=== PATIENT | male | born 1950 | race Caucasian/White ===

== ENCOUNTER 2023-03-08 10:28 | Emergency (ER) | payer MEDICARE, SELFPAY ==
[2023-03-08 10:37] VITALS: BP 210/121; PULSE 74; RESP 16; TEMP 36.4; O2SAT 98
--- NOTE | 2023-03-08 10:49 | ED_ITS ---
Documented by User: GEOVANNI Barrera 03/08/23 13:14 HPI - General Adult General: Chief complaint: General Medical Stated complaint: B/P @ eye 232/100 Time Seen by Provider: 03/08/23 10:43 Source: patient and family () Mode of arrival: ambulatory Limitations: no limitations History of Present Illness: Patient is a 72-year-old male who presents to ED today along with his for evaluation of high blood pressure. Patient states he was at a routine eye appointment when they checked his blood pressure and found it was significantly elevated at roughly 210/120s. Patient states he is asymptomatic currently. He states he has a longstanding history of blood pressure and takes several medications for this. He states over the past month or so blood pressure has been fairly labile. He states he will often have readings of systolics in the 190s but after rechecking it a few hours later will be in the 110s. He tells me takes diltiazem and lisinopril for his blood pressure and used to take both of these in the morning however his primary care provider (yesterday) told him to start taking the diltiazem in the evening and the lisinopril in the morning. Pharmacy record also shows that he takes hydralazine and HCTZ. These were confirmed by patient and his . Patient denies headache, chest pain, shortness of breath, difficulty breathing. Denies visual changes. PCP has referred him to cardiology and has scheduled him for stress testing. His appointments are already scheduled per . Onset (ago): week(s) (chronically high bp readings) Relieving factors: none Exacerbating factors: none Associated symptoms: Reports no associated symptoms; Deny chest pain, confusion, dyspnea, headache(s), malaise, nausea, rash, palpitations, syncope or vomiting Treatments prior to arrival: none Review of Systems Const: Denies: fever(s), chills, body aches, fatigue or malaise Eyes: Denies: change in vision, blurry vision, photophobia, floaters or seeing flashes Card: Denies: chest pain, palpitations, irregular heart rhythm, lightheadedness, syncope or dyspnea on exertion Resp: Denies: dyspnea, productive cough or pain on inspiration GI: Denies: abdominal pain, nausea, vomiting, heartburn or diarrhea : Denies: difficulty urinating or dysuria Musc: Denies: neck pain, back pain, extremity pain or joint pain Skin/Breast: Denies: rash Neuro: Denies: headache(s), numbness in extremities, weakness in extremities, sensory changes, lack of coordination, difficulty walking, frequent falls, dizzi ness, vertigo, confusion, behavioral changes, Slurred speech present, difficulty communicating thoughts or seizure-like activity Physical Exam Const: COMMON NORMALS: no acute distress, average body habitus, patient oriented x3, no limitations, healthy appearing, alert and well nourished ORIENTATION/CONSCIOUSNESS: Yes awake, Yes oriented to person, Yes oriented to place and Yes oriented to time OTHER: face appears flushed HENMT: COMMON NORMALS: normocephalic and atraumatic HEAD & SCALP: normal to inspection, normocephalic and atraumatic Neck/C-Spine: COMMON NORMALS: no JVD Resp: COMMON NORMALS: normal respiratory effort and clear to auscultation bilaterally AUSCULTATION: clear to auscultation bilaterally Cardio: COMMON NORMALS: no JVD, regular rate and regular rhythm RATE: regular rate RHYTHM: regular rhythm GI: COMMON NORMALS: Normal to inspection, nondistended, normoactive bowel sounds present, Soft to palpation, non-tender, No hepatosplenomegaly present and no masses PALPATION: Yes Soft to palpation and Yes No hepatosplenomegaly present Extremity: COMMON NORMALS: normal to inspection, capillary refill normal, no clubbing, cyanosis or edema, no calf tenderness and no pedal edema GENERAL: Yes normal exam except as noted Neuro: LUC COMA SCALE: document GCS findings Luc coma scale eye opening: Spontaneous [place] coma scale verbal response: Orientated Luc coma scale motor response: Obey commands [place] coma scale total score: 15 COMMON NORMALS: patient oriented x3, CN's II-XII intact bilaterally, moves all extremities, no focal motor deficits and no sensory deficits noted SENSORIUM/ORIENTATION: Yes alert, Yes oriented to person, Yes oriented to place and Yes oriented to time Skin: COMMON NORMALS: no rashes or lesions noted GENERAL SKIN EXAM: no rashes or lesions noted Course Vital Signs: Vital signs: Vital Signs Temperature 97.6 F 03/08/23 10:37 Pulse Rate 73 03/08/23 12:57 Respiratory Rate 16 03/08/23 11:11 Blood Pressure 166/88 05/23/23 12:57 Pulse Oximetry 97 03/08/23 12:57 Oxygen Delivery Me thod Room Air 03/08/23 10:37 MDM - General Adult Medical Decision Making Patient has a chronic history of hypertension. He states over the past month or so systolics have been reading as high as 190s. He does have an upcoming appoint ment with cardiology as well as an appointment for a stress test. He is asymptomatic upon arrival to our ED. Blood work overall looks okay apart from some minor elevations to his BUN/CR 25/1.4. He is on several nephrotoxic medications. We will discontinue his glipizide and decrease his metformin and start him on Januvia. We will discontinue his HCTZ and start him on amlodipine. Recommend close observation of blood pressures and blood sugars over the next week or so. Recommend he follow-up with primary care. Return ED precautions given. Case discussed with Dr. Sibley who agrees with care plan for patient. Lab Data 03/08/23 10:50 03/08/23 10:50 Laboratory Results WBC 8.4 10^3/uL (4.0-10.0) 03/08/23 10:50 RBC 4.14 10^6/uL (4.1-5.3) 03/08/23 10:50 Hgb 12.6 g/dL (11.7-16.6) 03/08/23 10:50 Hct 39.6 % (42.0-52.0) L 03/08/23 10:50 MCV 95.7 fl (80-94) H 03/08/23 10:50 MCH 30.4 pg (28.0-34.0) 03/08/23 10:50 MCHC 31.8 g/dL (30.0-36.0) 03/08/23 10:50 RDW 14.3 % (12.1-15.1) 03/08/23 10:50 Plt Count 283 10^3/cmm (130-400) 03/08/23 10:50 MPV 9.7 fL (7.4-10.4) 03/08/23 10:50 Neut % (Auto) 69.8 % 03/08/23 10:50 Lymph % (Auto) 19.1 % 03/08/23 10:50 Mccormick % (Auto) 7.5 % 03/08/23 10:50 Eos % (Auto) 2.5 % 03/08/23 10:50 Baso % (Auto) 0.6 % 03/08/23 10:50 Neut # (Auto) 5.87 10^3/uL (1.8-7.7) 03/08/23 10:50 Lymph # (Auto) 1.6 10^3/uL (0.8-4.8) 03/08/23 10:50 Mccormick # (Auto) 0.6 10^3/uL (0.2-0.9) 03/08/23 10:50 Eos # (Auto) 0.2 10^3/uL (0.0-0.8) 03/08/23 10:50 Baso # (Auto) 0.1 10^3/uL (0.0-0.1) 03/08/23 10:50 Nucleated RBC % (auto) 0 % 03/08/23 10:50 Nucleated RBCs # 0.0 /100WBC 03/08/23 10:50 Sodium 139 mmol/L (136-145) 03/08/23 10:50 Potassium 4.3 mmol/L (3.5-5.1) 03/08/23 10:50 Chloride 102 mmol/L (98-107) 03/08/23 10:50 Carbon Dioxide 25 mmol/L (22-29) 03/08/23 10:50 Anion Gap 16.3 (5-19) 03/08/23 10:50 BUN 25 mg/dL (8-23) H 03/08/23 10:50 Creatinine 1.4 mg/dL (0.7-1.2) H 03/08/23 10:50 GFR Calculation Not Reportable 03/08/23 10:50 Glucose 101 mg/dL (65-115) 03/08/23 10:50 Calculated Osmolality 293 mOsm/kg (285-295) 03/08/23 10:50 Calcium 9.0 mg/dL (8.5-10.5) 03/08/23 10:50 Total Bilirubin 0.2 mg/dL (0.15-1.2) 03/08/23 10:50 AST 30 U/L (0-40) 03/08/23 10:50 ALT 41 U/L (0-41) 03/08/23 10:50 Alkaline Phosphatase 90 U/L (40-130) 03/08/23 10:50 Total Protein 7.1 g/dL (6.6-8.7) 03/08/23 10:50 Albumin 4.3 g/dL (3.5-5.2) 03/08/23 10:50 Globulin 2.8 g/dL (1.3-4.6) 03/08/23 10:50 Urine Color Yellow (Yellow) 03/08/23 11:45 Urine Appearance Clear (CLEAR) 03/08/23 11:45 Urine pH 5 (5-7) 03/08/23 11:45 Ur Specific [place] 1.015 (1.005-1.030) 03/08/23 11:45 Urine Protein 1+ (Negative) H 03/08/23 11:45 Urine Glucose (UA) Norm (Normal) 03/08/23 11:45 Urine Ketones Negative (Negative) 03/08/23 11:45 Urine Blood Neg (Negative) 03/08/23 11:45 Urine Nitrate Negative (Negative) 03/08/23 11:45 Urine Bilirubin Neg (Negative) 03/08/23 11:45 Urine Urobilinogen Norm mg/dL (Negative) 03/08/23 11:45 Ur Leukocyte Esterase Negative (Negative) 03/08/23 11:45 Urine RBC None /hpf (0-2) 03/08/23 11:45 Urine WBC None /hpf (0-5) 03/08/23 11:45 Ur Squamous Epith Cells None /hpf (0-5) 03/08/23 11:45 Amorphous Sediment Not Reportable 03/08/23 11:45 Urine Bacteria None /hpf (NONE) 03/08/23 11:45 Discharge Plan Discharge Patient Disposition: Home Clinical Impression: Acute kidney injury Hypertension Qualifiers: Hypertension type: unspecified Qualified Code(s): I10 - Essential (primary) hypertension Condition: Stable Prescriptions: New metformin 500 mg tablet 500 mg PO BID Qty: 60 0RF Januvia 50 mg tablet 50 mg PO DAILY Qty: 30 0RF amlodipine 5 mg tablet 5 mg PO DAILY Qty: 30 0RF Continued diltiazem HCl 300 mg Capsule,Extended Release 24 Hr 300 mg PO BEDTIME lisinopril 40 mg tablet 40 mg PO QAM Discontinued metformin 850 mg tablet 850 mg PO TID hydrochlorothiazide 25 mg tablet 25 mg PO QAM glipizide 5 mg tablet 5 mg PO QAM No Action garlic 500 mg Capsule 500 mg PO QAM hydralazine 50 mg tablet 50 mg PO BID Balance Of Nature Fruits & Veg 1 cap PO BID Discharge Orders: Discharge ED (Routine); Ordered 03/08/23 Ordered By: Candelaria Avina Referrals: Shell Dia [Primary Care Provider] - Patient Instructions: Acute Kidney Injury (DC), Chronic Hypertension (DC) Activity Restrictions/Additional Instructions: As we discussed on your chemistry panel your kidney functions were slightly high. This is most likely medication induced. I am changing your metformin dose to 500 mg twice daily. We will discontinue your glipizide. We will start you on a new medication for diabetes called Januvia. I am also going to di scontinue your hydrochlorothiazide/HCTZ and start you on a blood pressure medication called amlodipine. Please keep a close record of blood pressures and sugars and follow-up with primary care later this week. Coding Level of Care Code ED Purchasing Agent for Chg Fwd Documented by User: Jon Sibley DO 03/08/23 13:23 HPI - General Adult General: Chief complaint: General Medical Stated complaint: B/P @ eye DR 232/100 Time Seen by Provider: 03/08/23 10:43 Physical Exam Neuro: LUC COMA SCALE: document GCS findings Luc coma scale total score: 15 Course Vital Signs: Vital signs: Vital Signs Temperature 97.6 F 03/08/23 10:37 Pulse Rate 73 03/08/23 12:57 Respiratory Rate 16 03/08/23 11:11 Blood Pressure 166/88 03/08/23 12:57 Pulse Oximetry 97 03/08/23 12:57 Oxygen Delivery Me thod Room Air 03/08/23 10:37 MDM - General Adult Medical Decision Making Patient has a chronic history of hypertension. He states over the past month or so systolics have been reading as high as 190s. He does have an upcoming appointment with cardiology as well as an appointment for a stress test. He is asymptomatic upon arrival to our ED. Blood work overall looks okay apart from some minor elevations to his BUN/CR 25/1.4. He is on several nephrotoxic medications. We will discontinue his glipizide and decrease his metformin and start him on Januvia. We will discontinue his HCTZ and start him on amlodipine. Recommend close observation of blood pressures and blood sugars over the next week or so. Recommend he follow-up with primary care. Return ED precautions given. Case discussed with Dr. Sibley who agrees with care plan for patient. Chart reviewed and patient discussed with midlevel. Agree with assessment and plan. Lab Data 03/08/23 10:50 03/08/23 10:50 Laboratory Results WBC 8.4 10^3/uL (4.0-10.0) 03/08/23 10:50 RBC 4.14 10^6/uL (4.1-5.3) 03/08/23 10:50 Hgb 12.6 g/dL (11.7-16.6) 03/08/23 10:50 Hct 39.6 % (42.0-52.0) L 03/08/23 10:50 MCV 95.7 fl (80-94) H 03/08/23 10:50 MCH 30.4 pg (28.0-34.0) 03/08/23 10:50 MCHC 31.8 g/dL (30.0-36.0) 03/08/23 10:50 RDW 14.3 % (12.1-15.1) 03/08/23 10:50 Plt Count 283 10^3/cmm (130-400) 03/08/23 10:50 MPV 9.7 fL (7.4-10.4) 03/08/23 10:50 Neut % (Auto) 69.8 % 03/08/23 10:50 Lymph % (Auto) 19.1 % 03/08/23 10:50 M[place]ick % (Auto) 7.5 % 03/08/23 10:50 Eos % (Auto) 2.5 % 03/08/23 10:50 Baso % (Auto) 0.6 % 03/08/23 10:50 Neut # (Auto) 5.87 10^3/uL (1.8-7.7) 03/08/23 10:50 Lymph # (Auto) 1.6 10^3/uL (0.8-4.8) 03/08/23 10:50 M[place]ick # (Auto) 0.6 10^3/uL (0.2-0.9) 03/08/23 10:50 Eos # (Auto) 0.2 10^3/uL (0.0-0.8) 03/08/23 10:50 Baso # (Auto) 0.1 10^3/uL (0.0-0.1) 03/08/23 10:50 Nucleated RBC % (auto) 0 % 03/08/23 10:50 Nucleated RBCs # 0.0 /100WBC 03/08/23 10:50 Sodium 139 mmol/L (136-145) 03/08/23 10:50 Potassium 4.3 mmol/L (3.5-5.1) 03/08/23 10:50 Chloride 102 mmol/L (98-107) 03/08/23 10:50 Carbon Dioxide 25 mmol/L (22-29) 03/08/23 10:50 Anion Gap 16.3 (5-19) 03/08/23 10:50 BUN 25 mg/dL (8-23) H 03/08/23 10:50 Creatinine 1.4 mg/dL (0.7-1.2) H 03/08/23 10:50 GFR Calculation Not Reportable 03/08/23 10:50 Glucose 101 mg/dL (65-115) 03/08/23 10:50 Calculated Osmolality 293 mOsm/kg (285-295) 03/08/23 10:50 Calcium 9.0 mg/dL (8.5-10.5) 03/08/23 10:50 Total Bilirubin 0.2 mg/dL (0.15-1.2) 03/08/23 10:50 AST 30 U/L (0-40) 03/08/23 10:50 ALT 41 U/L (0-41) 03/08/23 10:50 Alkaline Phosphatase 90 U/L (40-130) 03/08/23 10:50 Total Protein 7.1 g/dL (6.6-8.7) 03/08/23 10:50 Albumin 4.3 g/dL (3.5-5.2) 03/08/23 10:50 Globulin 2.8 g/dL (1.3-4.6) 03/08/23 10:50 Urine Color Yellow (Yellow) 03/08/23 11:45 Urine Appearance Clear (CLEAR) 03/08/23 11:45 Urine pH 5 (5-7) 03/08/23 11:45 Ur Specific [place] 1.015 (1.005-1.030) 03/08/23 11:45 Urine Protein 1+ (Negative) H 03/08/23 11:45 Urine Glucose (UA) Norm (Normal) 03/08/23 11:45 Urine Ketones Negative (Negative) 03/08/23 11:45 Urine Blood Neg (Negative) 03/08/23 11:45 Urine Nitrate Negative (Negative) 03/08/23 11:45 Urine Bilirubin Neg (Negative) 03/08/23 11:45 Urine Urobilinogen Norm mg/dL (Negative) 03/08/23 11:45 Ur Leukocyte Esterase Negative (Negative) 03/08/23 11:45 Urine RBC None /hpf (0-2) 03/08/23 11:45 Urine WBC None /hpf (0-5) 03/08/23 11:45 Ur Squamous Epith Cells None /hpf (0-5) 03/08/23 11:45 Amorphous Sediment Not Reportable 03/08/23 11:45 Urine Bacteria None /hpf (NONE) 03/08/23 11:45 Discharge Plan Discharge Patient Disposition: Home Clinical Impression: Acute kidney injury Hypertension Qualifiers: Hypertension type: unspecified Qualified Code(s): I10 - Essential (primary) hypertension Condition: Stable Prescriptions: New metformin 500 mg tablet 500 mg PO BID Qty: 60 0RF Januvia 50 mg tablet 50 mg PO DAILY Qty: 30 0RF amlodipine 5 mg tablet 5 mg PO DAILY Qty: 30 0RF Continued diltiazem HCl 300 mg Capsule,Extended Release 24 Hr 300 mg PO BEDTIME lisinopril 40 mg tablet 40 mg PO QAM Discontinued metformin 850 mg tablet 850 mg PO TID hydrochlorothiazide 25 mg tablet 25 mg PO QAM glipizide 5 mg tablet 5 mg PO QAM No Action garlic 500 mg Capsule 500 mg PO QAM hydralazine 50 mg tablet 50 mg PO BID Balance Of Nature Fruits & Veg 1 cap PO BID Discharge Orders: Discharge ED (Routine); Ordered 03/08/23 Ordered By: Candelaria Avina Referrals: Shell Dia [Primary Care Provider] - Patient Instructions: Acute Kidney Injury (DC), Chronic Hypertension (DC) Activity Restrictions/Additional Instructions: As we discussed on your chemistry panel your kidney functions were slightly high. This is most likely medication induced. I am changing your metformin dose to 500 mg twice daily. We will discontinue your glipizide. We will start you on a new medication for diabetes called Januvia. I am also going to discontinue your hydrochlorothiazide/HCTZ and start you on a blood pressure medication called amlodipine. Please keep a close record of blood pressures and sugars and follow-up with primary care later this week. Coding Level of Care Code ED Purchasing Agent for Bridgette Palmer
[2023-03-08 11:05] LABS: Basophils # 0.1 10^3/uL (0.0-0.1); Basophils % 0.6 %; Eosinophils # 0.2 10^3/uL (0.0-0.8); Eosinophils % 2.5 %; Hematocrit 39.6 % (42.0-52.0); Hemoglobin 12.6 g/dL (11.7-16.6); Lymphocytes # 1.6 10^3/uL (0.8-4.8); Lymphocytes % 19.1 %; Mean Corpuscular HGB Conc 31.8 g/dL (30.0-36.0); Mean Corpuscular Hemoglobin 30.4 pg (28.0-34.0); Mean Corpuscular Volume 95.7 fl (80-94); Mean Platelet Volume 9.7 fL (7.4-10.4); Monocytes # 0.6 10^3/uL (0.2-0.9); Monocytes % 7.5 %; Neutrophils # 5.87 10^3/uL (1.8-7.7); Neutrophils % 69.8 %; Nucleated Red Blood Cells % 0 %; Platelet Count 283 10^3/cmm (130-400); Red Blood Count 4.14 10^6/uL (4.1-5.3); Red Cell Distribution Width 14.3 % (12.1-15.1); White Blood Count 8.4 10^3/uL (4.0-10.0)
[2023-03-08 11:11] VITALS: BP 185/96; PULSE 69; RESP 16; O2SAT 97
[2023-03-08] MEDS: hyDRALAzine 20 mg/mL INJ 1 mL 10 MG IVP (11:13)
--- NOTE | 2023-03-08 11:18 | PC.PHAR ---
pt and pts verified pts medications-pt and pts states the pt is still taking diltiazem er 300mg at [facility] last filled 10/2021 90d/s-pt states he is still taking metformin 850mg tid filled 12/22/22 30d/s pt states had build up of the medication walkatys states rx has refills-pt states the metoprolol tartrate was dced a month ago ext med history shows last filled 01/03/23 90d/s 12.5mg daily-
[2023-03-08 11:20] LABS: Alanine Aminotransferase 41 U/L (0-41); Albumin Level 4.3 g/dL (3.5-5.2); Alkaline Phosphatase 90 U/L (40-130); Blood Urea Nitrogen 25 mg/dL (8-23); Carbon Dioxide 25 mmol/L (22-29); Chloride 102 mmol/L (98-107); Globulin 2.8 g/dL (1.3-4.6); Glucose 101 mg/dL (65-115); Osmolality Calculated 293 mOsm/kg (285-295); Sodium 139 mmol/L (136-145); Total Bilirubin 0.2 mg/dL (0.15-1.2); Total Protein 7.1 g/dL (6.6-8.7)
[2023-03-08 11:26] LABS: Anion Gap 16.3 (5-19); Potassium 4.3 mmol/L (3.5-5.1)
[2023-03-08 11:27] LABS: Aspartate Amino Transferase 30 U/L (0-40)
[2023-03-08] MEDS: sodium chloride 0.9% 1,000 ML 999 ML IV (11:37)
[2023-03-08 11:38] VITALS: BP 154/78
[2023-03-08 11:59] LABS: Add Urine Microscopic? YES; Bilirubin Urine Neg (Negative); Blood Urine Neg (Negative); Glucose Urine UA Norm (Normal); Ketones Urine Negative (Negative); Leukocyte Esterase Urine Negative (Negative); Nitrate Urine Negative (Negative); Protein Urine 1+ (Negative); Specific Gravity, Urine 1.015 (1.005-1.030); Urine Appearance Clear (CLEAR); Urine Color Yellow (Yellow); Urobilinogen Urine Norm (Negative); pH Urine 5 (5-7)
[2023-03-08 12:57] VITALS: BP 166/88; PULSE 73; O2SAT 97
== END 2023-03-08 13:00 | disposition home or self-care (01) ==
PROVIDERS: Emergency Provider Physician Assistant; PCP Nurse Practitioner Family
DX: I10 Essential (primary) hypertension (principal); N17.9 Acute kidney failure, unspecified; Z79.84 Long term (current) use of oral hypoglycemic drugs
CPT/HCPCS: 80053; 81001; 85025; 96361; 96374; 99284; J0360; J7030

== ENCOUNTER → 2023-04-06 14:17 | Outpatient (BNVA) | payer MEDICARE, SELFPAY | PROVIDERS: PCP Nurse Practitioner Family; Visit Provider Internal Medicine | DX: R07.9 Chest pain, unspecified (principal); R94.31 Abnormal electrocardiogram [ECG] [EKG]; I51.89 Other ill-defined heart diseases; E11.9 Type 2 diabetes mellitus without complications; I10 Essential (primary) hypertension; Z87.891 Personal history of nicotine dependence | CPT/HCPCS: 93005; 99204 ==

== ENCOUNTER 2023-07-06 10:31 | Outpatient (CLI) | payer MEDICARE, SELFPAY ==
--- NOTE | 2023-07-06 11:00 | USCV_ITS ---
Jesus Alberto Huynh Age: 72 Gender: M : 1950 Exam Date: 07/06/2023 10:54 Ordering Phys: Fahad Buckner M.D ([email or web address]) Technologist: SHAHID Exam Location: [facility] [place] Indication: SOB BP: / HR: 71 Rhythm: Sinus Technical Quality: Adequate MEASUREMENTS (Male / Female) Normal Values 2D ECHO LV Diastolic Diameter PLAX 4.9 cm 4.2 - 5.9 / 3.9 - 5.3 cm LV Systolic Diameter PLAX 3.8 cm LV Chamber Size 3.5 cm IVS Diastolic Thickness 0.9 cm 0.6 - 1.0 / 0.6 - 0.9 cm IVS Systolic Thickness 1.3 cm LVPW Diastolic Thickness 1.3 cm 0.6 - 1.0 / 0.6 - 0.9 cm LVPW Systolic Thickness 1.4 cm RV Chamber Size 3.7 cm LVOT Diameter 2.0 cm LV Ejection Fraction 2D Teich 45.5 % LV Ejection Fraction MOD 2C 61.3 % LV Ejection Fraction 2C AL 65.1 % LA Diameter 4.0 cm LA Width 2.7 cm LA Height 3.7 cm RA Width 3.2 cm RA Height 2.9 cm Aorta at Sinotubular Diameter 3.4 cm IVC Diameter 2.2 cm M-MODE Aortic Annulus Diameter 3.4 cm LA Ao Ratio MM 1.3 MV E Point Septal Separation 0.3 cm DOPPLER AV Peak Velocity 181.0 cm/s LVOT Peak Velocity 92.0 cm/s AV Area Cont Eq vti 1.8 cm squared AV Area Cont Eq pk 1.6 cm squared MV Area PHT 4.0 cm squared Mitral E to A Ratio 1.1 MV E' Velocity 58.0 cm/s Mitral E to MV E' Ratio 18.6 Mitral E to LV E' Lateral Ratio 17.7 Mitral E to LV E' Septal Ratio 20.0 TR Peak Velocity 207.6 cm/s TR Peak Gradient 17.2 mmHg TR Mean Velocity 138.4 cm/s TR Mean Gradient 9.0 mmHg TR Velocity Time Integral 48.4 cm TV Peak E Velocity 67.0 cm/s Right Atrial Pressure 3.0 mmHg Pulmonary Artery Systolic Pressu 20.2 mmHg RV Acceleration Time 0.1 s RV Ejection Time 0.3 s RV AcT/ET 0.3 FINDINGS Left Ventricle Left ventricle is normal in size. LV systolic function is normal with EF of 60 to 65%. No regional wall motion abnormalities are seen. Diastolic function is abnormal Right Ventricle Normal in size and function Right Atrium Normal in size Left Atrium Normal in size Mitral Valve Structurally normal mitral valve. no signficant stenosis or regurgitation Aortic Valve Structurally normal aortic valve. No significant stenosis or regurgitation. Tricuspid Valve Mild tricuspid regurgitation. Insufficient TR jet to calculate RVSP. Pulmonic Valve Not well-visualized Pericardium Normal Aorta Normal in size IVC Dilated CONCLUSIONS LV systolic function is normal with EF of 60 to 65%. Diastolic function is abnormal Mild trace regurgitation IVC is dilated. No comparison studies are available Fahad Buckner MD (Electronically Signed) Final Date: 06 July 2023 13:09 S
== END 2023-07-06 10:32 | disposition home or self-care (01) ==
PROVIDERS: PCP Nurse Practitioner Family; Visit Provider Internal Medicine
DX: R07.9 Chest pain, unspecified (principal); R06.02 Shortness of breath; I51.89 Other ill-defined heart diseases; E11.9 Type 2 diabetes mellitus without complications; I10 Essential (primary) hypertension
CPT/HCPCS: 93306; 99214

== ENCOUNTER → 2023-09-13 07:50 | Outpatient (BNVA) | payer MEDICARE, SELFPAY | PROVIDERS: PCP Nurse Practitioner Family; Visit Provider Nurse Practitioner Family | DX: L57.8 Other skin changes due to chronic exposure to nonionizing radiation (principal); L57.0 Actinic keratosis; D48.5 Neoplasm of uncertain behavior of skin; L91.8 Other hypertrophic disorders of the skin; D18.01 Hemangioma of skin and subcutaneous tissue | CPT/HCPCS: 11102; 17000; 99203 ==

== ENCOUNTER → 2024-04-04 14:53 | Outpatient (BNVA) | payer MEDICARE, SELFPAY | PROVIDERS: PCP Nurse Practitioner Family; Visit Provider Internal Medicine Cardiovascular Disease | DX: I11.9 Hypertensive heart disease without heart failure (principal) | CPT/HCPCS: 99212 ==

== ENCOUNTER → 2024-05-16 10:15 | Outpatient (BNVA) | payer MEDICARE, SELFPAY | PROVIDERS: PCP Nurse Practitioner Family; Visit Provider Nurse Practitioner Family | DX: L57.0 Actinic keratosis (principal); L81.4 Other melanin hyperpigmentation; L57.8 Other skin changes due to chronic exposure to nonionizing radiation; D22.5 Melanocytic nevi of trunk; Z85.828 Personal history of other malignant neoplasm of skin | CPT/HCPCS: 17000; 99213 ==

== ENCOUNTER → 2024-08-15 08:59 | Outpatient (BNVA) | payer MEDICARE, SELFPAY | PROVIDERS: PCP Nurse Practitioner Family; Visit Provider Nurse Practitioner Family | DX: L81.4 Other melanin hyperpigmentation (principal); L57.8 Other skin changes due to chronic exposure to nonionizing radiation; D22.5 Melanocytic nevi of trunk; Z85.828 Personal history of other malignant neoplasm of skin; L57.0 Actinic keratosis | CPT/HCPCS: 17004; 99213 ==

== ENCOUNTER → 2024-11-30 10:41 | Outpatient (BNVA) | payer MEDICARE, SELFPAY | PROVIDERS: PCP Nurse Practitioner Family; Visit Provider Nurse Practitioner Family | DX: L81.4 Other melanin hyperpigmentation (principal); L57.8 Other skin changes due to chronic exposure to nonionizing radiation; D22.5 Melanocytic nevi of trunk; Z08 Encounter for follow-up examination after completed treatment for malignant neoplasm; Z85.828 Personal history of other malignant neoplasm of skin | CPT/HCPCS: 99213 ==

== ENCOUNTER → 2025-04-03 13:00 | Outpatient (BNVA) | payer MEDICARE, SELFPAY | PROVIDERS: PCP Nurse Practitioner Family; Visit Provider Internal Medicine | DX: I51.89 Other ill-defined heart diseases (principal); I10 Essential (primary) hypertension; E11.9 Type 2 diabetes mellitus without complications; Z79.84 Long term (current) use of oral hypoglycemic drugs | CPT/HCPCS: 99213 ==